=== PATIENT | female | born 1990 | race African-American/Black ===

== ENCOUNTER 2018-06-04 16:18 | Emergency (ER) | payer SELFPAY ==
[2018-06-04 17:25] LABS: Absolute Lymphocytes (CBC) 2.7 K/uL (0.7-4.9); Absolute Monocytes 0.6 K/uL (0.1-1.3); Basophils % 0.5 % (0-1.3); Eosinophils % 2.3 % (0-4.4); Hematocrit 37.5 % (36.0-45.0); Lymphocytes % 49.5 % (15.3-44.8); MCH 27.6 pg (27.0-35.0); MCV 84.4 fL (80-100); MPV 8.5 fL (7.6-11.3); Monocytes % 10.7 % (3.3-12.3); RBC Red Blood Cell Count 4.45 M/uL (3.86-4.86)
[2018-06-04 18:00] LABS: ALT/SGPT 36 U/L (12-78); AST/SGOT 31 U/L (15-37); Albumin 3.8 g/dL (3.4-5.0); Alkaline Phosphatase 87 U/L (45-117); BUN Blood Urea Nitrogen 12 mg/dL (7-18); Bicarbonate 26 mmol/L (21-32); Bilirubin Direct < 0.1 mg/dL (0-0.2); Bilirubin Total 0.3 mg/dL (0.2-1.0); Glucose Level 91 mg/dL (74-106); Lipase 167 U/L (73-393); Potassium 4.4 mmol/L (3.5-5.1); Sodium Level 137 mmol/L (136-145)
--- NOTE | 2018-06-04 19:57 | RAD REPORT ---
EXAM DESCRIPTION: US - Pelvis Complete - 06/04/2018 6:26 pm CLINICAL HISTORY: Vaginal bleeding, pelvic pain Preliminary findings provided at the time of the study. COMPARISON: None. TECHNIQUE: Transabdominal pelvic sonography was performed. FINDINGS: Left ovary contains a 3.1 centimeter thin-walled anechoic cyst. No solid mass of the left ovary or left adnexa. No suspicious right ovarian finding. Doppler evaluation shows normal blood flow within the ovarian stroma. Endometrium is 2-3 mm. No focal endometrial abnormality. No discrete myometrial mass. Uterus is elong ated in configuration measuring 11.9 x 2.9 x 5.2 cm. No discrete myometrial mass. Transabdominal asse ssment is limited. Fullness in the fundus could potentially be a fibroid. IMPRESSION: No endometrial abnormality. No myometrium abnormality confirmed. A fundal fibroid is not entirely excluded. A 3.1 cm thin-walled anechoic left ovarian cyst is present. No suspicious right ovarian finding.
--- NOTE | 2018-06-04 20:01 | RAD REPORT ---
EXAM DESCRIPTION: RAD - Abdomen W Erect - 06/04/2018 6:32 pm CLINICAL HISTORY: Abdominal pain COMPARISON: None. TECHNIQUE: Supine and upright views of the abdomen were obtained. FINDINGS: Large stool volume fills a tortuous and redundant colon. No small bowel dilatation. No geovany e air or pneumatosis. No suspicious calcifications. No underlying bony abnormality seen. IMPRESSION: Large stool volume throughout the colon. No obstruction or free air.
--- NOTE | 2018-06-04 21:03 | EDPHYS ---
Physician Documentation [facility] Name: Ryann Stephen Age: 27 yrs Sex: Female : 1990 Arrival Date: 06/04/2018 Time: 16:22 Bed 17 Private MD: None, None ED Physician Jose Lai HPI: 06/04 17:00 This 27 yrs old Black Female presents to ER via Ambulatory with complaints of cp Constipation, Abdominal Pain, Vaginal Bleeding. 17:00 The patient presents with vaginal bleeding that is with no clots. cp 17:00 Onset: The symptoms/episode began/occurred 12 day(s) ago. cp 17:00 Associated signs and symptoms: Pertinent positives: lower abdomen pain. cp 17:00 Severity of symptoms: in the emergency department the symptoms have improved, mildly. cp The patient is sexually active. The patient's method of control includes nothing. 17:00 Patient also c/o constipation with no bowel movement for past 10 days. 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 - Social history:: Smoking status: Patient uses tobacco products, smokes one-half pack cigarettes per day. - Ebola Screening: : Patient negative for fever greater than or equal to 101.5 degrees Fahrenheit, and additional compatible Ebola Virus Disease symptoms Patient denies exposure to infectious person Patient denies travel to an Ebola-affected area in the 21 days before illness onset No symptoms or risks identified at this time. ROS: 17:05 Constitutional: Negative for body aches, chills, fever, poor PO intake. cp 17:05 Eyes: Negative for injury, pain, redness, and discharge. cp 17:05 ENT: Negative for drainage from ear(s), ear pain, sore throat, difficulty swallowing, cp difficulty handling secretions. 17:05 Cardiovascular: Negative for chest pain, edema, palpitations. 17:05 Respiratory: Negative for cough, shortness of breath, wheezing. 17:05 Abdomen/GI: Positive for abdominal pain, constipation, Negative for vomiting, diarrhea, anorexia, dysphagia, black/tarry stool, rectal bleeding. 17:05 Back: Negative for pain at rest, pain with movement, radiated pain. 17:05 : Positive for vaginal bleeding, menstrual abnormality, Negative for urinary symptoms. 17:05 Skin: Negative for cellulitis, rash. 17:05 Neuro: Negative for altered mental status, headache, weakness. 17:05 All other systems are negative. cp Exam: 17:12 Constitutional: The patient appears in no acute distress, alert, awake, non-toxic, well cp developed, well nourished. 17:12 Head/Face: Normocephalic, atraumatic. cp 17:12 Eyes: Periorbital structures: appear normal, Conjunctiva: normal, no exudate, no injection, Sclera: no appreciated abnormality, Lids and lashes: appear normal, bilaterally. 17:12 ENT: External ear(s): are unremarkable, Ear canal(s): are normal, clear, TM's: bulging, is not appreciated, bilaterally, dullness, bilaterally, erythema, is not appreciated, bilaterally, Nose: is normal, Mouth: Lips: moist, Oral mucosa: pink and intact, moist, Posterior pharynx: is normal, airway is patent, no erythema, no exudate, Tonsils: are normal in appearance, Voice: is normal. 17:12 Neck: ROM/movement: is normal, is supple, without pain, no range of motions limitations, no nuchal rigidity, Lymph nodes: no appreciated lymphadenopathy. 17:12 Chest/axilla: Inspection: normal, Palpation: is normal, no crepitus, no tenderness. 17:12 Cardiovascular: Rate: normal, Rhythm: regular, Edema: is not appreciated, JVD: is not appreciated. 17:12 Respiratory: the patient does not display signs of respiratory distress, Respirations: normal, no use of accessory muscles, no retractions, no splinting, no tachypnea, labored breathing, is not present, Breath sounds: are clear throughout, no decreased breath sounds, no stridor, no wheezing. 17:12 Abdomen/GI: Inspection: obese Bowel sounds: active, all quadrants, Palpation: soft, in all quadrants, mild abdominal tenderness, in the right lower quadrant and left lower quadrant, rebound tenderness, is not appreciated, voluntary guarding, is not appreciated, involuntary guarding, is not appreciated. 17:12 Back: CVA tenderness, is absent. 17:12 Skin: cellulitis, is not appreciated, no rash present. 17:12 Neuro: Orientation: to person, place \T\ time. Mentation: is normal, Cerebellar function: is grossly normal, Motor: moves all fours, strength is normal, Sensation: no obvious gross deficits. 20:15 : CVA tenderness, is absent, Pelvic Exam: External exam: is normal, Speculum exam: cp scant bleeding, os that is closed, no tissue in cervix is seen, no tissue in vagina is seen, bimanual exam reveals no cervical motion tenderness, no adnexa tenderness or masses bilaterally, discharge, dark, the nurse was present for the exam. Vital Signs: 16:27 BP 118 / 76; Pulse 90; Resp 19; Temp 98.1; Pulse Ox 100% on R/A; Weight 71.21 kg; aj Height 4 ft. 11 in. (149.86 cm); 17:39 BP 113 / 76; Pulse 79; Resp 18; Pulse Ox 99% on R/A; Pain 0/10; em 18:45 BP 115 / 78; Pulse 71; Resp 20; Pulse Ox 100% on R/A; Pain 0/10; em 20:36 BP 112 / 78; Pulse 69; Resp 16 S; Pulse Ox 100% on R/A; jd3 16:27 Body Mass Index 31.71 (71.21 kg, 149.86 cm) aj MDM: 16:31 Patient medically screened. cp 17:00 Differential diagnosis: cervicitis, ectopic , menorrhea, ovarian cyst, pelvic cp inflammatory disease, urinary tract infection, vaginosis, bowel obstruction, fecal impaction. 21:00 Data reviewed: vital signs, nurses notes, lab test result(s), radiologic studies, plain cp films, ultrasound. 21:00 Test interpretation: by ED physician or midlevel provider: plain radiologic studies. cp Counseling: I had a detailed discussion with the patient and/or guardian regarding: the historical points, exam findings, and any diagnostic results supporting the discharge/admit diagnosis, lab results, radiology results, the need for outpatient follow up, an OB/Gyne specialist, to return to the emergency department if symptoms worsen or persist or if there are any questions or concerns that arise at home. Special discussion: Based on the patient's Hx, exam, and Dx evaluation, there is no indication for emergent surgery or inpatient Tx. It is understood by the patient/guardian that if the Sx's persist or worsen they need to return immediately for re-evaluation. ED course: VSS. 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 Will discharge to home for continued monitoring. 06/04 16:44 Order name: Basic Metabolic Panel 06/04 16:44 Order name: CBC with Diff 06/04 16:44 Order name: Creatinine for Radiology; Complete Time: 17:41 06/04 16:44 Order name: Hepatic Function; Complete Time: 19:00 06/04 19:00 Interpretation: Normal except: GLOB 4.2; A/G 0.9. 06/04 16:44 Order name: Lipase; Complete Time: 19:00 06/04 16:44 Order name: Protime (+inr); Complete Time: 17:41 06/04 16:44 Order name: Ptt, Activated; Complete Time: 17:41 06/04 16:44 Order name: Basic Metabolic Panel; Complete Time: 19:00 EDND 06/04 16:44 Order name: CBC with Automated Diff; Complete Time: 17:41 EDND 06/04 17:41 Interpretation: Normal except: RDW 15.7; CEDRICK% 37.0; LYM% 49.5. 06/04 17:07 Order name: Urine Dipstick--Ancillary (enter results); Complete Time: 20:47 06/04 17:07 Order name: Urine --Ancillary (enter results); Complete Time: 20:47 06/04 17:25 Order name: US Pelvis Complete; Complete Time: 20:12 06/04 20:13 Interpretation: Report reviewed. 06/04 19:05 Order name: GC (GONORR/CHLAMYDIA) Probe 06/04 19:05 Order name: Wet Prep; Complete Time: 21:01 06/04 21:01 Interpretation: Reviewed. 06/04 16:44 Order name: IV Saline Lock; Complete Time: 17:20 06/04 16:44 Order name: Labs collected and sent; Complete Time: 17:20 06/04 16:59 Order name: Urine Dipstick-Ancillary (obtain specimen); Complete Time: 17:05 cp 06/04 16:59 Order name: Urine Test (obtain specimen); Complete Time: 17:05 06/04 17:42 Order name: XRAY Abdomen With Erect; Complete Time: 20:12 06/04 20:13 Interpretation: Report reviewed. cp 06/04 19:05 Order name: Pelvic Exam Setup; Complete Time: 19:20 cp Administered Medications: 21:16 Drug: Rocephin - (cefTRIAXone) 1 grams Route: IVPB; Infused Over: 30 mins; Site: left jd3 antecubital; 21:29 Follow up: Response: No adverse reaction; IV Status: Completed infusion jd3 21:16 Drug: Zithromax 1 grams Route: PO; j 21:29 Follow up: Response: No adverse reaction j Disposition: 06/04/18 21:02 Discharged to Home. Impression: Abdominal and pelvic pain, Constipation, Other ovarian cysts. - Condition is Stable. - Discharge Instructions: Abdominal Pain, Adult, Constipation, Adult, Ovarian Cyst, Pelvic Pain, Female. - Prescriptions for Ibuprofen 800 mg Oral Tablet - take 1 tablet by ORAL route every 8 hours As needed take with food; 30 tablet. Doxycycline Hyclate 100 mg Oral Tablet - take 1 tablet by ORAL route every 12 hours; 20 tablet. Miralax 17 gram/dose Oral - take 1 packet by ORAL route once daily for 14-21 days dilute powder in 8 ounces of water or juice; 20 packet. - Medication Reconciliation Form, Thank You Letter, Antibiotic Education, Prescription Opioid Use form. - Follow up: Carmela Musa MD; When: 1 week; Reason: Recheck today's complaints. - Problem is new. - Symptoms have improved. Signatures: Dispatcher [employer] Kayla Mionr RN RN aj Munoz, Edgar, ARCHAEOLOGY PROFESSOR ARCHAEOLOGY PROFESSOR Paul Naylor PA PA cp Davies, Jonathon RN RN jd3 Corrections: (The following items were deleted from the chart) 18:12 17:00 Onset: The symptoms/episode began/occurred cp cp 21:04 21:02 06/04/2018 21:02 Discharged to Home. Impression: Abdominal and pelvic pain; cp Constipation. Condition is Stable. Forms are Medication Reconciliation Form, Thank You Letter, Antibiotic Education, Prescription Opioid Use. Follow up: Carmela Ayalai; When: 1 week; Reason: Recheck today's complaints. Problem is new. Symptoms have improved. cp 21:29 21:04 06/04/2018 21:02 Discharged to Home. Impression: Abdominal and pelvic pain; jd3 Constipation; Other ovarian cysts. Condition is Stable. Discharge Instructions: Abdominal Pain, Adult, Pelvic Pain, Female, Ovarian Cyst. Prescriptions for Ibuprofen 800 mg Oral Tablet - take 1 tablet by ORAL route every 8 hours As needed take with food; 30 tablet, Doxycycline Hyclate 100 mg Oral Tablet - take 1 tablet by ORAL route every 12 hours; 20 tablet, Miralax 17 gram/dose Oral - take 1 packet by ORAL route once daily for 14-21 days dilute powder in 8 ounces of water or juice; 20 packet. and Forms are Medication Reconciliation Form, Thank You Letter, Antibiotic Education, Prescription Opioid Use. Follow up: Mini Lucyi; When: 1 week; Reason: Recheck today's complaints. Problem is new. Symptoms have improved. cp
--- NOTE | 2018-06-04 21:03 | ER ---
Nurse's Notes [facility] Name: Ryann Stephen Age: 27 yrs Sex: Female : 1990 Arrival Date: 06/04/2018 Time: 16:22 Bed 17 Private MD: None, None Diagnosis: Abdominal and pelvic pain;Constipation;Other ovarian cysts Presentation: 06/04 16:26 Presenting complaint: Patient states: Abnormal menses for 6 month, started bleeding 12 aj days ago. Also reports no BM in 10 days. Transition of care: patient was not received from another setting of care. Onset of symptoms was May 24, 2018. Risk Assessment: Do you want to hurt yourself or someone else? Patient reports no desire to harm self or others. Initial Sepsis Screen: Does the patient meet any 2 criteria? No. Patient's initial sepsis screen is negative. Does the patient have a suspected source of infection? No. Patient's initial sepsis screen is negative. Care prior to arrival: None. 16:26 Method Of Arrival: Ambulatory aj 16:26 Acuity: HOMAR 3 aj Triage Assessment: 16:27 General: Appears in no apparent distress. comfortable, Behavior is calm, cooperative, aj appropriate for age, Smells of alcohol. Pain: Complains of pain in abdomen. Neuro: Level of Consciousness is awake, alert, obeys commands, Oriented to person, place, time, situation, Appropriate for age. Respiratory: Airway is patent Respiratory effort is even, unlabored, Respiratory pattern is regular, symmetrical. GI: Reports constipation. GI: Abdomen is round. Derm: Skin is intact, is healthy with good turgor, Skin is pink, warm \T\ dry. normal. 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 - Social history:: Smoking status: Patient uses tobacco products, smokes one-half pack cigarettes per day. - Ebola Screening: : Patient negative for fever greater than or equal to 101.5 degrees Fahrenheit, and additional compatible Ebola Virus Disease symptoms Patient denies exposure to infectious person Patient denies travel to an Ebola-affected area in the 21 days before illness onset No symptoms or risks identified at this time. Screenin:20 Abuse screen: Denies threats or abuse. Nutritional screening: No deficits noted. em Tuberculosis screening: No symptoms or risk factors identified. Fall Risk None identified. Assessment: 17:18 General: Appears in no apparent distress. comfortable, Behavior is calm, cooperative, em Denies fever. Pain: Denies pain. Neuro: Level of Consciousness is awake, alert, obeys commands, Oriented to person, place, time, situation, Moves all extremities. Speech is normal. Cardiovascular: Capillary refill < 3 seconds Patient's skin is warm and dry. Respiratory: Airway is patent Respiratory effort is even, unlabored, Respiratory pattern is regular, symmetrical. GI: Abdomen is round non-distended, Bowel sounds present X 4 quads. Abd is soft and non tender X 4 quads. Reports constipation, Patient currently denies nausea, vomiting. : Urine is clear, Reports vaginal bleeding that is has not had period in over 6 months, unknown if she is Denies burning with urination. EENT: No signs and/or symptoms were reported regarding the EENT system. Derm: Skin is intact, is healthy with good turgor, Skin is pink, warm \T\ dry. Musculoskeletal: Range of motion: intact in all extremities. 17:25 Reassessment: I agree with previous assessment. 18:44 Reassessment: Patient appears in no apparent distress at this time. Patient and/or em family updated on plan of care and expected duration. Pain level reassessed. Patient is alert, oriented x 3, equal unlabored respirations, skin warm/dry/pink. Patient denies pain at this time. 19:26 Reassessment: Patient appears in no apparent distress at this time. No changes from jd3 previously documented assessment. Patient and/or family updated on plan of care and expected duration. Pain level reassessed. Patient is alert, oriented x 3, equal unlabored respirations, skin warm/dry/pink. 20:35 Reassessment: Patient appears in no apparent distress at this time. No changes from jd3 previously documented assessment. Patient and/or family updated on plan of care and expected duration. Pain level reassessed. Patient is alert, oriented x 3, equal unlabored respirations, skin warm/dry/pink. 21:28 Reassessment: Patient appears in no apparent distress at this time. No changes from jd3 previously documented assessment. Patient and/or family updated on plan of care and expected duration. Pain level reassessed. Patient is alert, oriented x 3, equal unlabored respirations, skin warm/dry/pink. Vital Signs: 16:27 BP 118 / 76; Pulse 90; Resp 19; Temp 98.1; Pulse Ox 100% on R/A; Weight 71.21 kg; aj Height 4 ft. 11 in. (149.86 cm); 17:39 BP 113 / 76; Pulse 79; Resp 18; Pulse Ox 99% on R/A; Pain 0/10; em 18:45 BP 115 / 78; Pulse 71; Resp 20; Pulse Ox 100% on R/A; Pain 0/10; em 20:36 BP 112 / 78; Pulse 69; Resp 16 S; Pulse Ox 100% on R/A; jd3 16:27 Body Mass Index 31.71 (71.21 kg, 149.86 cm) ED Course: 16:22 Patient arrived in ED. mr 16:22 None, None is Private Physician. mr 16:27 Triage completed. aj 16:27 Arm band placed on left wrist. Patient placed in an exam room. aj 16:30 Paul Murillo PA is PHCP. cp 16:30 Jose Lai MD is Attending Physician. cp 16:34 Cristina Pompa, LEANNA is Primary Nurse. iw 17:20 Patient has correct armband on for positive identification. Placed in gown. Bed in low em position. Call light in reach. 17:20 Initial lab(s) drawn, by me, sent to lab. Urine collected: clean catch specimen, clear. em Inserted saline lock: 20 gauge in left antecubital area, using aseptic technique. Blood collected. 17:53 Ultrasound completed. Patient tolerated well. sg3 18:29 Patient moved to radiology via wheelchair. kp1 18:29 X-ray completed. Patient tolerated procedure well. kp1 18:30 US Pelvis Complete In Process Unspecified. EDMS 18:30 XRAY Abdomen With Erect In Process Unspecified. EDMS 18:31 Patient moved back from radiology. kp1 21:01 Caremla Musa MD is Referral Physician. cp 21:24 No provider procedures requiring assistance completed. IV discontinued, intact, jd3 bleeding controlled, No redness/swelling at site. Pressure dressing applied. Administered Medications: 21:16 Drug: Rocephin - (cefTRIAXone) 1 grams Route: IVPB; Infused Over: 30 mins; Site: left jd3 antecubital; :29 Follow up: Response: No adverse reaction; IV Status: Completed infusion jd3 21:16 Drug: Zithromax 1 grams Route: PO; jd3 : Follow up: Response: No adverse reaction jd3 Outcome: : Discharge ordered by MD. cp 21: Discharged to home ambulatory. jd3 : Condition: stable 21: Discharge instructions given to patient, Instructed on discharge instructions, follow up and referral plans. medication usage, Demonstrated understanding of instructions, follow-up care, medications, Prescriptions given X 3. :29 Patient left the ED. jd3 Signatures: Dispatcher [employer] EDKayla Villavicencio RN RN aj Rivera, Xochitl mr Adis, Abdelrahman, DUMPER MOLD CLEANER DUMPER MOLD CLEANER em Cristina Pompa RN RN iw Paul Murillo, ROXI PA Brittany Lora RN Michaela Jay kp1 Braulio Willson RN RN jd3 Yocasta Conklin sg3 Corrections: (The following items were deleted from the chart) 19:10 18:44 Reassessment: Patient appears in no apparent distress at this time. Patient em and/or family updated on plan of care and expected duration. Pain level reassessed. Patient is alert, oriented x 3, equal unlabored respirations, skin warm/dry/pink. iw 19:11 18:45 BP 115 / 78; Pulse 71bpm; Resp 20bpm; Pulse Ox 100% RA; Pain 0/10; iw em 20:37 20:36 BP 143 / 76; Pulse 79bpm; Resp 16bpm; Spontaneous; Pulse Ox 100% RA; jd3 jd3
[2018-06-04] MEDS ORDERED: CEFTRIAXONE/SWI 1gm 1 GM/10 ML SYR ONE (21:11)
[2018-06-04] MEDS ORDERED: AZITHROMYCIN 250 MG TAB ONE (21:11)
[2018-06-04 21:25] LABS: Urine Blood NEGATIVE (NEG); Urine Glucose NEGATIVE (NEG); Urine Protein NEGATIVE (NEG); Urine pH 6.5 (5.0-7.0)
[2018-06-07 15:00] LABS: C.trachomatis RNA,TMA Not Detected (Not Detected)
== END 2018-06-04 21:29 | disposition home or self-care (01) ==
LOC: ER 16:18
DX: K59.00 Constipation, unspecified (principal); N83.202 Unspecified ovarian cyst, left side; N93.9 Abnormal uterine and vaginal bleeding, unspecified; R10.2 Pelvic and perineal pain
CPT/HCPCS: 36415; 74019; 76856; 80048; 80076; 81003; 81025; 83690; 85025; 85610; 85730; 87210; 87490; 87590; 96374; 99284; J0696